=== PATIENT | female | born 1935 | race Caucasian/White ===

== ENCOUNTER → 2018-07-13 09:57 | Outpatient (CLI) | payer MEDICARE, SELFPAY ==
--- NOTE | 2018-07-13 | DI.MG.S_ITS ---
BILATERAL DIGITAL SCREENING MAMMOGRAM 3D/2D WITH CAD: 07/13/2018 CLINICAL: Routine screening. Comparison is made to exams dated: 07/05/2017 mammogram, 07/03/2016 mammogram, and 07/02/2015 mammogram - [facility]. There are scattered fibroglandular elements in both breasts. Current study was also evaluated with a Computer Aided Detection (CAD) system. No significant masses, calcifications, or other findings are seen in either breast. There has been no significant interval change. IMPRESSION: NEGATIVE There is no mammographic evidence of malignancy. A 1 year screening mammogram is recommended.(07/14/2019) This exam was interpreted at Station ID: [id number]. NOTE: For mammograms, a report in lay terms will be sent to the patient. Approximately 15% of breast malignancies will not be visualized mammographically. In the management of a palpable breast mass, a negative mammogram must not discourage biopsy of a clinically suspicious lesion. Electronically Signed By: Toni smith/arlene:07/13/2018 10:59:21 letter sent: Normal Exam ACR BI-RADS Category 1: Negative 3341F
== END ==
PROVIDERS: PCP Internal Medicine; Visit Provider Internal Medicine
DX: Z12.31 Encounter for screening mammogram for malignant neoplasm of breast (principal)
CPT/HCPCS: 77063; 77067

== ENCOUNTER → 2018-11-14 08:49 | Outpatient (CLI) | payer MEDICARE, SELFPAY ==
[2018-11-14 09:52] LABS: Alanine Aminotransferase 21 IU/L (9-52); Albumin 4.4 g/dL (3.5-5.0); Albumin Globulin Ratio 1.8 (1.0-2.8); Alkaline Phosphatase 69 U/L (38-126); Aspartate Aminotransferase 19 IU/L (14-36); BUN Creatinine Ratio 21.3 (6-22); Bilirubin Total 0.6 mg/dL (0.2-1.3); Blood Urea Nitrogen 17 mg/dL (7-17); Calcium 9.7 mg/dL (8.4-10.2); Carbon Dioxide 31 mmol/L (22-32); Chloride 103 mmol/L (98-107); Estimated Glomerular Filt Rate > 60.0 mL/min (>60); Globulin 2.5 g/dL (1.7-4.1); Glucose 92 mg/dL (80-110); HEMOLYSIS < 15 (0-50); Potassium 4.3 mmol/L (3.4-5.1); Sodium 142 mmol/L (137-145); Total Protein 6.9 g/dL (6.3-8.2)
== END ==
PROVIDERS: PCP Internal Medicine; Visit Provider Internal Medicine
DX: E78.2 Mixed hyperlipidemia (principal); I10 Essential (primary) hypertension
CPT/HCPCS: 36415; 80053

== ENCOUNTER → 2018-12-22 10:05 | Outpatient (CLI) | payer MEDICARE, SELFPAY ==
[2018-12-22 11:06] LABS: Alanine Aminotransferase 22 IU/L (9-52); Albumin 4.4 g/dL (3.5-5.0); Albumin Globulin Ratio 1.7 (1.0-2.8); Alkaline Phosphatase 76 U/L (38-126); Aspartate Aminotransferase 19 IU/L (14-36); BUN Creatinine Ratio 17.8 (6-22); Bilirubin Total 0.7 mg/dL (0.2-1.3); Blood Urea Nitrogen 16 mg/dL (7-17); Carbon Dioxide 32 mmol/L (22-32); Chloride 100 mmol/L (98-107); Estimated Glomerular Filt Rate 59.7 mL/min (>60); Globulin 2.6 g/dL (1.7-4.1); Glucose 108 mg/dL (80-110); HEMOLYSIS < 15 (0-50); Potassium 4.9 mmol/L (3.4-5.1); Sodium 142 mmol/L (137-145)
== END ==
PROVIDERS: PCP Internal Medicine; Visit Provider Internal Medicine
DX: I10 Essential (primary) hypertension (principal); R42 Dizziness and giddiness
CPT/HCPCS: 36415; 80053

== ENCOUNTER 2019-04-11 08:50 | Day surgery (SDC) | payer MEDICARE, SELFPAY ==
[2019-04-11] VITALS (8 sets, daily range): BP systolic 139–154; BP diastolic 65–76; PULSE 51–63; RESP 12–16; TEMP 36.5–37.3; O2SAT 95–97; BMI 27.0
--- NOTE | 2019-04-11 | PATH_ITS ---
[facility] Accession Number: [id number] . 01 Material submitted: . PART A: cecum - CECAL POLYP PART B: colon - POLYP AT 30 CM . 01 Clinical history: . SCREENING COLONOSCOPY . 02 Diagnosis: A. Cecum, Polyp: Tubular adenoma. . B. Colon At 30 CM, Polyp: Hyperplastic polyp. BFI/04/12/2019 . 02 Electronically signed: . Hank Kumar MD, PhD, Pathologist NPI- [id number] . 01 Gross description: . Part A: CECAL POLYP: Received in formalin are 2 fragment(s) of villanueva, soft tissue measuring 0.1 x 0.1 x 0.1 cm to 0.2 x 0.2 x 0.2 cm which is entirely submitted and submitted entirely in 1 cassette(s) Part B: POLYP AT 30 CM: Received in formalin is 1 fragment(s) of villanueva, soft tissue measuring 0.1 x 0.1 x 0.1 cm which is entirely submitted and submitted entirely in 1 cassette(s) /DMC /DMC . 02 Pathologist provided ICD-10: D12.0, K63.5 . 02 CPT . 884413, [id number] Performed at: 01 [facility] [address], [place], [place] [id number] MD Toni Dolan MD Phone: [phone] Performed at: 02 [facility] [address] [place], [place] [id number] MD Lina Collazo MD Phone: [phone]
[2019-04-11] MEDS: SODIUM CHLORIDE 0.9% 1,000 ML 84 ML IV (09:28)
--- NOTE | 2019-04-11 09:47 | PM.HP.1 ---
History of Present Illness Date Patient Seen: 04/11/19 Time Patient Seen: 09:47 Chief complaint: [id number] SCREENING COLONOSCOPY Narrative: The patient is a woman with a history of polyps. Her last exam was 7 years ago. She is here for a screening colonoscopy. Patient History Medical History H/O adenomatous polyp of colon (Inactive) Essential hypertension (Chronic 11/05/15) Mixed hyperlipidemia (Chronic 11/05/15) Surgical History History of lumpectomy (Resolved 1949) History of pelvic surgery (Resolved 2008) Status post cholecystectomy (Resolved 1994) Status post hysterectomy (Resolved 1984) Status post tonsillectomy and adenoidectomy (Resolved 1939) Family History Father Family history of hypertension Grandmother Family history of diabetes mellitus Mother Family history of interstitial nephritis Social History household members: spouse Smoking Status: Never smoker Family & Social History Family History Father Family history of hypertension Grandmother Family history of diabetes mellitus Mother Family history of interstitial nephritis Social History: household members spouse Tobacco & Substance use: Smoking Status Never smoker Meds Home Medications Medication Instructions Recorded Confirmed Type lovastatin 40 mg tablet 40 mg PO HS #90 tab 11/29/18 04/11/19 Rx hydrochlorothiazide 25 mg PO QDAY #90 tab 03/06/19 04/11/19 Rx Allergies Allergy/AdvReac Type Severity Reaction Status Date / Time No Known Drug Allergies Allergy Verified 04/11/19 09:20 Review of Systems Review of Systems All systems reviewed & are unremarkable except as noted in HPI and below Cardiovascular Comments: History of hypertension on medication Exam Vital Signs (past 8 hours): - 04/11/19 09:15 Temperature 97.9 F Pulse Rate 58 L Respiratory Rate 15 Blood Pressure 151/76 H Pulse Oximetry 96 Oxygen Delivery Method Room Air Narrative Exam Narrative: Pleasant cooperative patient no apparent distress. Lungs are clear to auscultation. No rales or rhonchi. Heart regular rate and rhythm no murmur gallop. Abdomen is soft nontender without mass. No obvious hernias. Patient is alert and oriented x3. Assessment & Plan Assessment & Plan narrative: The patient for a screening colonoscopy. I have discussed the procedure with them. Risks of bleeding, perforation which would necessitate major operation, failure to find remove all lesions, the potential tattoo were all discussed. All questions were answered. They wished to proceed.
--- NOTE | 2019-04-11 09:49 | PM.PREOP ---
Pre-operative Note Interval Note History & Physical reviewed/Exam performed by Physician: Yes Changes to H&P: No ASA Class (for procedural sedation): II
[2019-04-11] MEDS: MIDAZOLAM 5 MG/5 ML VIAL IV (10:15)
[2019-04-11] MEDS: fentaNYL 250 MCG/5 ML INJ IV (10:16)
--- NOTE | 2019-04-11 10:21 | SUR.OPER ---
ERBE CAUTERY MACHINE USED.
--- NOTE | 2019-04-11 10:41 | PM.OP.ENDO ---
Operative Date/Time/Diagnoses Date of procedure: 04/11/19 Time of procedure: 10:41 Post-op diagnosis: same Procedure & Clinicians Study performed: Colonoscopy with hot biopsy Same procedure as scheduled: Yes Indications: Screening. Personal history of polyps. Surgeon: Zach Dwyer Procedure Notes SCOAP/Timeout: Performed Procedure in detail: The patient was placed in the left lateral decubitus position and underwent IV sedation directed by the surgeon consisting of fentanyl and Versed. Digital exam was unremarkable. The scope was inserted and advanced through the rectum into the sigmoid, descending, transverse, and ascending colon. Patient was noted to have extensive sigmoid diverticulosis and occasional diverticula elsewhere. The cecum was reached identified by the ileocecal valve . There was a small polyp in the cecum which was removed with the hot biopsy forceps. The scope was gradually brought out. One Polyps were found at 30 cm. This too was removed with hot biopsy forceps.. The scope ultimately was retroflexed in the rectum. The appearance was normal. The scope was removed and the patient tolerated the procedure well. Prep was excellent Scope withdrawal time: 12 min(10 on exam only) Sedation minutes: 40 Findings: diverticulosis (Principally sigmoid but scattered elsewhere) and polyp (Two small) Specimen(s): other (Polyps) Complications: none Recommendations: Other recommendation (Due to age in 5 years I would probably not recommend a repeat colonoscopy) Follow up: as needed Disposition: PACU
--- NOTE | 2019-04-11 11:09 | SUR.PHASEI ---
1105 very drowsy, arouses easily, HOB elevated, juice given and tolerated well. Denies discomfort/nausea, or passing flatus. Preparing to transfer. VSS.
== END 2019-04-11 11:52 | disposition home or self-care (01) ==
PROVIDERS: PCP Internal Medicine; Visit Provider Specialist
PROC: 0DJD8ZZ Inspection of Lower Intestinal Tract, Via Natural or Artificial Opening Endoscopic (ICD-10-PCS; CPT 45378; principal; 2019-04-11 09:45)
DX: Z86.010 Personal history of colon polyps (principal); K57.30 Diverticulosis of large intestine without perforation or abscess without bleeding; I10 Essential (primary) hypertension; E78.5 Hyperlipidemia, unspecified; D12.0 Benign neoplasm of cecum; K63.5 Polyp of colon
CPT/HCPCS: 45384; 88305; 99152; 99153; J2250; J3010

== ENCOUNTER → 2019-07-19 10:04 | Outpatient (CLI) | payer MEDICARE, SELFPAY ==
--- NOTE | 2019-07-19 | DI.MG.S_ITS ---
BILATERAL DIGITAL SCREENING MAMMOGRAM 3D/2D WITH CAD: 07/19/2019 CLINICAL: Routine screening. Comparison is made to exams dated: 07/13/2018 mammogram, 07/05/2017 mammogram, and 07/03/2016 mammogram - [facility]. There are scattered fibroglandular elements in both breasts. Current study was also evaluated with a Computer Aided Detection (CAD) system. There is a mole marker on the right breast. There are mole markers on the left breast. A linear scar marker overlies the outer right breast. No suspicious masses, calcifications, or other findings are seen in either breast. There has been no significant interval change. IMPRESSION: NEGATIVE There is no mammographic evidence of malignancy. A 1 year screening mammogram is recommended. This exam was interpreted at Station ID: [id number]. NOTE: For mammograms, a report in lay terms will be sent to the patient. Approximately 15% of breast malignancies will not be visualized mammographically. In the management of a palpable breast mass, a negative mammogram must not discourage biopsy of a clinically suspicious lesion. Electronically Signed By: James Anderson M.D. ecl/:07/19/2019 11:47:04 letter sent: Normal Exam ACR BI-RADS Category 1: Negative 3341F
== END ==
PROVIDERS: PCP Internal Medicine; Visit Provider Internal Medicine
DX: Z12.31 Encounter for screening mammogram for malignant neoplasm of breast (principal)
CPT/HCPCS: 77063; 77067

== ENCOUNTER → 2019-08-07 08:05 | Outpatient (CLI) | payer MEDICARE, SELFPAY ==
[2019-08-07 09:12] LABS: BUN Creatinine Ratio 25.7 (6-22); Blood Urea Nitrogen 18 mg/dL (7-17); Calcium 9.8 mg/dL (8.4-10.2); Carbon Dioxide 30 mmol/L (22-32); Chloride 101 mmol/L (98-107); Estimated Glomerular Filt Rate > 60.0 mL/min (>60); Glucose 97 mg/dL (80-110); HEMOLYSIS < 15 (0-50); Potassium 4.5 mmol/L (3.4-5.1); Sodium 141 mmol/L (137-145)
== END ==
PROVIDERS: PCP Internal Medicine; Visit Provider Internal Medicine
DX: E78.2 Mixed hyperlipidemia (principal); I10 Essential (primary) hypertension
CPT/HCPCS: 36415; 80048

== ENCOUNTER 2019-08-15 08:04 | Emergency (ER) | payer MEDICARE, SELFPAY ==
[2019-08-15 08:22] VITALS: BP 197/59; PULSE 46; RESP 15; TEMP 36.3; O2SAT 98
--- NOTE | 2019-08-15 08:23 | ED.GENADULT ---
HPI - General Adult General Chief complaint: Dizziness Stated complaint: dizzy,nausea Time Seen by Provider: 08/15/19 08:20 Source: patient Mode of arrival: Ambulatory Limitations: no limitations History of Present Illness HPI narrative: 83-year-old female here for evaluation of lightheadedness. She states that has been going on for the past couple days. Seems to have no other associated symptoms except for some nausea. She states that the nausea ?is not bad ?she has not needed to take any medications for it. Is still tolerating oral intake. She states that for the past several years she has had episodes like this once or twice a year. States she has seen her primary doctor about it. Has not seen a neurologist. She states that she feels like her primary doctor does not know specifically what is going on. She does not take any medications for it. States that normally starts in last several days but then gradually resolves on its own. She states the last time this happened her primary doctor told her that if it ever happened again she should be evaluated when she was having the symptoms. That is why she came in this morning. Related Data Home Medications Medication Instructions Recorded Confirmed clobetasol 0.05 % topical ointment 1 applictn TOP .q4days gram 05/16/19 08/08/19 estradiol 1 gram VAG QWEEK 05/16/19 08/08/19 Previous Rx's Medication Instructions Recorded lovastatin 40 mg tablet 40 mg PO HS #90 tab 11/29/18 hydrochlorothiazide 25 mg PO QDAY #90 tab 03/06/19 meclizine 25 mg PO TID PRN #14 tab 08/15/19 Allergies Allergy/AdvReac Type Severity Reaction Status Date / Time No Known Drug Allergies Allergy Verified 08/08/19 15:08 Review of Systems Constitutional Constitutional: Denies fever(s) and Denies headache(s) Eyes Eyes: Denies change in vision and Denies diplopia ENT Ears, Nose, Mouth, and Throat: Denies vertigo, Reports dizziness, Denies ear discharge, Denies otalgia, Denies facial pain, Denies headache(s), Denies mouth pain, Denies nasal discharge, Denies neck pain, Denies post nasal drip, Denies tinnitus, Denies sinus pressure and Denies sore throat Cardiovascular Cardiovascular: Denies chest pain and Denies dyspnea Respiratory Respiratory: Denies cough and Denies dyspnea Gastrointestinal Gastrointestinal: Denies abdominal pain, Reports nausea and Denies vomiting Genitourinary Genitourinary: Denies dysuria Musculoskeletal Musculoskeletal: Denies myalgias, Denies arthralgias and Denies neck pain Integumentary/Breasts Skin/Breast: Denies lesions and Denies rash Neurologic Neurologic: Denies behavioral changes, Denies vertigo, Reports dizziness and Denies headache(s) Psychiatric Psychiatric: Denies behavioral changes Hematologic/Lymphatic Hematologic/Lymphatic: Denies easy bleeding and Denies easy bruising Patient History Medical History Essential hypertension (Chronic 11/05/15) H/O adenomatous polyp of colon (Inactive) Mixed hyperlipidemia (Chronic 11/05/15) Social History household members: spouse Smoking Status: Never smoker Exam Initial Vital Signs Initial Vital Signs: Vital Signs Temperature 97.3 F L 08/15/19 08:22 Pulse Rate 46 L 08/15/19 08:22 Respiratory Rate 15 08/15/19 08:22 Blood Pressure 197/59 H 08/15/19 08:22 Pulse Oximetry 98 08/15/19 08:22 Const General: cooperative, comfortable, well developed and well groomed Orientation: alert, awake and oriented x3 HENMT Head: normal to inspection and normocephalic Resp Effort & Inspection: normal respiratory effort Auscultation: clear to auscultation bilaterally Cardio Rate: bradycardic Pulses: radial pulses present Skin Lesions: no lesions Rashes: no rashes Neuro General: alert, awake and oriented x3 Cranial Nerves: CN's II-XI intact bilaterally Cognition: normal cognition Speech: speech normal Gait: normal gait Motor: muscle tone normal throughout Sensory Exam: no sensory deficits noted Extrem General: normal to inspection and capillary refill normal Psych Appearance: grossly normal and well kempt Scores GCS [place] coma scale eye opening: Spontaneous [place] coma scale verbal response: Orientated [place] coma scale motor response: Obey commands [place] coma scale total score: 15 Course Orders Ordered: ED Orders 08/15/19 08:22 EKG-12 Lead Stat 08/15/19 08:45 Basic Metabolic Panel Stat Complete Blood Count AUTO DIFF Stat Thyroid Stimulating Hormone Stat Discontinued Medications Meclizine HCl (Antivert) 25 mg PO NOW ONE Stop: 08/15/19 08:32 Last Admin: 08/15/19 08:59 Dose: 25 mg Documented by: LEONARD Vital Signs Vital signs: Vital Signs - 8 hr 08/15/19 08:22 08/15/19 10:30 Temperature 97.3 F L Pulse Rate 46 L 58 L Respiratory Rate 15 18 Blood Pressure 197/59 H Blood Pressure [Left Arm] 160/60 H Pulse Oximetry 98 99 Medical Decision Making Lab Data Lab results reviewed: Yes I reviewed the patient's lab results. Result diagrams: 08/15/19 08:45 08/15/19 08:45 Labs: Lab Results 08/15/19 08/15/19 08/15/19 Range/Units 08:45 08:45 08:45 WBC 5.2 (4.5-11.0) X10^3/uL RBC 4.61 (4.0-5.2) X10^6/uL Hgb 14.0 (12.0-16.0) g/dL Hct 40.6 (36-46) % MCV 88.1 (80-100) fL MCH 30.5 (26-34) PG MCHC 34.6 (30-36) % RDW 14.5 (11.6-14.8) % Plt Count 164 (150-400) X10^3/uL Neut % (Auto) 71.8 (50-75) % Lymph % (Auto) 19.3 L (25-40) % [place] % (Auto) 6.6 (3-14) % Eos % (Auto) 1.8 L (2-4) % Baso % (Auto) 0.5 (0-2) % Neut # (Auto) 3700 (0607-6562) /uL Lymph # (Auto) 1000 L (1610-7157) /uL [place] # (Auto) 300 (0-900) /uL Eos # (Auto) 100 (0-450) /uL Baso # (Auto) 0 (0-100) /uL Sodium 141 (137-145) mmol/L Potassium 3.8 (3.4-5.1) mmol/L Chloride 103 (98-107) mmol/L Carbon Dioxide 29 (22-32) mmol/L BUN 13 (7-17) mg/dL Creatinine 0.60 (0.52-1.04) mg/dL Estimated GFR > 60.0 (>60) mL/min BUN/Creatinine Ratio 21.7 (6-22) Glucose 104 (80-110) mg/dL Calcium 9.5 (8.4-10.2) mg/dL TSH 3.15 (0.47-4.68) uIU/mL ECG Data Attestation: I personally reviewed and interpreted this ECG as follows: Prior ECG tracings: not available for review Interpretation: Sinus bradycardia Left axis deviation LVH Ventricular rate of 46 Normal QRS QTC [address] T wave changes MDM Narrative Medical decision making narrative: Patient reports improvement of her symptoms after the meclizine. She was able to ambulate around the emergency department. Her labs are unremarkable. She is bradycardic on her EKG. There is no prior EKGs to refer this to. I do not feel that this is the cause of her symptoms. Her blood pressure improved. Will send home with prescription for meclizine. She was instructed to contact her primary provider about the indications for a Holter monitor versus is evaluation by Ear Nose and Throat. She was given return precautions. She expressed understanding and agreement with plan. Discharge Plan Departure Patient Disposition: Home Clinical Impression: Dizziness Instructions: DI for Dizziness-Nonvertigo Activity Restrictions/Additional Instructions: Continue all of your medications as directed. I do recommend you talk with your primary provider about the indications for a Holter monitor versus referral to see ear nose and throat. Return to the emergency department for any of the symptoms that we discussed. Prescriptions: New meclizine 25 mg tablet 25 mg PO TID PRN (Reason: dizziness) Qty: 14 RF: 0 No Action lovastatin 40 mg tablet 40 mg PO HS Qty: 90 RF: 3 hydrochlorothiazide 25 mg tablet 25 mg PO QDAY Qty: 90 RF: 1 clobetasol 0.05 % ointment 1 applictn TOP .q4days RF: 0 estradiol [Estrace] 0.01 % (0.1 mg/gram) cream 1 gram VAG QWEEK RF: 0 Referrals: Rocco Villeda MD [Primary Care Provider] -
[2019-08-15 08:54] LABS: Add Manual Diff / Slide Review NO; Basophils Absolute Auto 0 /uL (0-100); Basophils Percent Auto 0.5 % (0-2); Eosinophils Absolute Auto 100 /uL (0-450); Eosinophils Percent Auto 1.8 % (2-4); Hematocrit 40.6 % (36-46); Lymphocytes Absolute Auto 1000 /uL (1100-4500); Lymphocytes Percent Auto 19.3 % (25-40); Mean Corpuscular HGB Conc 34.6 % (30-36); Mean Corpuscular Hemoglobin 30.5 PG (26-34); Mean Corpuscular Volume 88.1 fL (80-100); Monocytes Absolute Auto 300 /uL (0-900); Monocytes Percent Auto 6.6 % (3-14); Neutrophils Absolute Auto 3700 /uL (1500-7000); Neutrophils Percent Auto 71.8 % (50-75); Platelet Count 164 X10^3/uL (150-400); Red Blood Cell Count 4.61 X10^6/uL (4.0-5.2); Red Cell Distribution Width 14.5 % (11.6-14.8); White Blood Cell Count 5.2 X10^3/uL (4.5-11.0)
[2019-08-15] MEDS: MECLIZINE HCL 12.5 MG TABLET 25 MG PO (08:59)
[2019-08-15 09:11] LABS: BUN Creatinine Ratio 21.7 (6-22); Blood Urea Nitrogen 13 mg/dL (7-17); Calcium 9.5 mg/dL (8.4-10.2); Carbon Dioxide 29 mmol/L (22-32); Chloride 103 mmol/L (98-107); Estimated Glomerular Filt Rate > 60.0 mL/min (>60); Glucose 104 mg/dL (80-110); HEMOLYSIS < 15 (0-50); Potassium 3.8 mmol/L (3.4-5.1); Sodium 141 mmol/L (137-145)
[2019-08-15 09:42] LABS: Thyroid Stimulating Hormone 3.15 uIU/mL (0.47-4.68)
--- NOTE | 2019-08-15 10:16 | PC.NURSE ---
pt ambulated unassisted around nursing station, states that she feels much better than when I came in
[2019-08-15 10:30] VITALS: BP 160/60; PULSE 58; RESP 18; O2SAT 99
[2019-08-15 10:53] VITALS: BP 162/75; PULSE 55; O2SAT 99
== END 2019-08-15 10:54 | disposition home or self-care (01) ==
PROVIDERS: Emergency Provider Emergency Medicine; PCP Internal Medicine
DX: R42 Dizziness and giddiness (principal)
CPT/HCPCS: 36415; 80048; 84443; 85025; 93005; 99282; 99284

== ENCOUNTER → 2019-08-30 07:24 | Outpatient (CLI) | payer MEDICARE, SELFPAY ==
--- NOTE | 2019-09-22 08:24 | PM.CARDMON.1 ---
[employer] Report Referral & Results Date Patient Seen: 08/30/19 Requesting provider: Rocco Villeda Indication: Bradycardia Duration of monitoring (days): 14 Diary information: There were 2 patient diary entries and 2 patient triggered events These entries were associated with sinus rhythm and PACs Data: Minimum heart rate identified was 37 beats per minute at 08:30 on 09/06/2019 Maximum sinus heart rate was 121 beats per minute at 17:00 on 09/08/2019 Maximum overall heart rate was 179 beats per minute at 12:20 on 09/03/2019 during a 5 beat run of SVT Less than 1% of identified beats rather ventricular supraventricular ectopic in origin The computer identified 117 runs of SVT/atrial tachycardia with the longest being 54 minutes with a rate of 92 which suggests a non SVT. The fastest rate was as above 107 9 beats per minute during a 5 beat run Impression: Probably normal cardiac care nurse. Does not appear to be any significant supraventricular tachycardia and certainly no significant bradycardia
== END ==
LOC: CAR 07:25 → HOLT 07:27
PROVIDERS: PCP Internal Medicine; Visit Provider Internal Medicine
DX: R00.1 Bradycardia, unspecified (principal)
CPT/HCPCS: 0296T; 0298T

== ENCOUNTER → 2019-09-15 10:21 | Outpatient (CLI) | payer MEDICARE, SELFPAY ==
--- NOTE | 2019-09-15 10:25 | DI.RAD.S_ITS ---
PROCEDURE: XR HAND RT MIN 3V INDICATIONS: finger pain/glf TECHNIQUE: 3 views of the hand(s) acquired. COMPARISON: None. FINDINGS: Bones: Oblique fracture of the fifth metacarpal. Fracture of the proximal phalanx of the little finger. There is mild radial displacement of the distal fragment. Diffuse carpal degeneration. Diffuse interphalangeal degenerative joint disease. Soft tissues: No suspicious soft tissue calcifications. IMPRESSION: Oblique fracture of the fifth metacarpal Minimally displaced fracture at the base of the little finger proximal phalanx Dictated by: Speedy Esposito M.D. on 09/15/2019 at 14:16 Approved by: Speedy Esposito M.D. on 09/15/2019 at 14:21
[2019-09-15 11:39] LABS: BUN Creatinine Ratio 27.1 (6-22); Blood Urea Nitrogen 19 mg/dL (7-17); Carbon Dioxide 30 mmol/L (22-32); Chloride 100 mmol/L (98-107); Creatine Kinase 70 U/L (30-135); Estimated Glomerular Filt Rate > 60.0 mL/min (>60); Glucose 84 mg/dL (80-110); HEMOLYSIS < 15 (0-50); Magnesium 2.1 mg/dL (1.6-2.3); Potassium 3.7 mmol/L (3.4-5.1); Sodium 138 mmol/L (137-145)
== END ==
PROVIDERS: PCP Internal Medicine; Visit Provider Internal Medicine
DX: M79.646 Pain in unspecified finger(s) (principal); W18.30XA Fall on same level, unspecified, initial encounter; E78.2 Mixed hyperlipidemia; I10 Essential (primary) hypertension
CPT/HCPCS: 73130; 80048; 82550; 83735

== ENCOUNTER → 2020-03-01 09:46 | Outpatient (CLI) | payer MEDICARE, SELFPAY ==
--- NOTE | 2020-03-01 09:49 | DI.RAD.S_ITS ---
PROCEDURE: XR CHEST 2V INDICATIONS: cough TECHNIQUE: 2 views of the chest were acquired. COMPARISON: None. FINDINGS: Surgical changes and devices: None. Lungs and pleura: Lungs are clear. No pleural effusions or pneumothorax. Mediastinum: Mediastinal contours are normal. Heart size is normal. Bones and chest wall: No suspicious bony abnormalities. Soft tissues appear unremarkable. IMPRESSION: Normal for age, source of current cough symptoms is not seen. Dictated by: Jose Mendez M.D. on 03/01/2020 at 11:25 Approved by: Jose Mendez M.D. on 03/01/2020 at 11:25
== END ==
PROVIDERS: PCP Internal Medicine; Referring Provider Internal Medicine; Visit Provider Internal Medicine
DX: R05 Cough (principal)
CPT/HCPCS: 71046

== ENCOUNTER → 2020-03-22 10:40 | Outpatient (CLI) | payer MEDICARE, SELFPAY ==
--- NOTE | 2020-03-22 10:42 | DI.RAD.S_ITS ---
PROCEDURE: FL BARIUM SWALLOW INDICATIONS: cough/aspiration COMPARISON: None. FINDINGS: Function: There is severely decreased esophageal peristalsis. Delayed esophageal clearance No elicited gastroesophageal reflux. There is normal transit of a calibrated barium tablet through the esophagus into the stomach. Morphology: Air-contrast images demonstrate normal mucosal morphology. Single contrast views show no esophageal strictures, extrinsic mass effects, or diverticula. Limited images of the stomach demonstrate normal appearance. IMPRESSION: Severe esophageal dysmotility Dictated by: Speedy Esposito M.D. on 03/22/2020 at 12:37 Approved by: Speedy Esposito M.D. on 03/22/2020 at 12:39
== END ==
PROVIDERS: PCP Internal Medicine; Referring Provider Internal Medicine; Visit Provider Internal Medicine
DX: K22.4 Dyskinesia of esophagus (principal); T17.908A Unspecified foreign body in respiratory tract, part unspecified causing other injury, initial encounter; R05 Cough; I10 Essential (primary) hypertension
CPT/HCPCS: 74220

== ENCOUNTER → 2020-07-25 10:10 | Outpatient (CLI) | payer MEDICARE, SELFPAY ==
--- NOTE | 2020-07-25 | DI.MG.S_ITS ---
BILATERAL DIGITAL SCREENING MAMMOGRAM 3D/2D WITH CAD: 07/25/2020 CLINICAL: Routine screening. Comparison is made to exams dated: 07/19/2019 mammogram, 07/13/2018 mammogram, and 07/05/2017 mammogram - [facility]. There are scattered fibroglandular elements in both breasts. Current study was also evaluated with a Computer Aided Detection (CAD) system. There is a mole marker on the right breast. There are mole markers on the left breast. No significant masses, calcifications, or other findings are seen in either breast. There has been no significant interval change. IMPRESSION: NEGATIVE There is no mammographic evidence of malignancy. A 1 year screening mammogram is recommended. This exam was interpreted at Station ID: [id number]. NOTE: For mammograms, a report in lay terms will be sent to the patient. Approximately 15% of breast malignancies will not be visualized mammographically. In the management of a palpable breast mass, a negative mammogram must not discourage biopsy of a clinically suspicious lesion. Electronically Signed By: Ti guzman/arelne:07/25/2020 10:51:31 letter sent: Normal Exam ACR BI-RADS Category 1: Negative 3341F
== END ==
PROVIDERS: PCP Internal Medicine; Referring Provider Internal Medicine; Visit Provider Internal Medicine
DX: Z12.31 Encounter for screening mammogram for malignant neoplasm of breast (principal)
CPT/HCPCS: 77063; 77067

== ENCOUNTER → 2020-10-18 08:30 | Outpatient (CLI) | payer MEDICARE, SELFPAY ==
[2020-10-18 10:48] LABS: Alanine Aminotransferase 13 IU/L (<35); Albumin Globulin Ratio 1.5 (1.0-2.8); Alkaline Phosphatase 84 U/L (38-126); Aspartate Aminotransferase 23 IU/L (14-36); BUN Creatinine Ratio 20.3 (6-22); Bilirubin Total 0.6 mg/dL (0.2-1.3); Blood Urea Nitrogen 16 mg/dL (7-17); Calcium 9.4 mg/dL (8.4-10.2); Carbon Dioxide 33 mmol/L (22-32); Chloride 103 mmol/L (98-107); Cholesterol 194 mg/dL (140-199); Estimated Glomerular Filt Rate > 60.0 mL/min (>60); Globulin 2.6 g/dL (1.7-4.1); Glucose 94 mg/dL (80-110); HDL Cholesterol 52 mg/dL (40-60); HEMOLYSIS < 15 (0-50); LDL Cholesterol Calculated 124 mg/dL (<100); Potassium 3.8 mmol/L (3.4-5.1); Sodium 137 mmol/L (137-145); Total Protein 6.6 g/dL (6.3-8.2); Triglycerides 92 mg/dL (35-150)
== END ==
PROVIDERS: PCP Internal Medicine; Referring Provider Internal Medicine; Visit Provider Internal Medicine
DX: E78.2 Mixed hyperlipidemia (principal); I10 Essential (primary) hypertension
CPT/HCPCS: 36415; 80053; 80061

== ENCOUNTER → 2021-04-21 10:56 | Outpatient (CLI) | payer MEDICARE, SELFPAY ==
[2021-04-21 11:39] LABS: BUN Creatinine Ratio 23.2 (6-22); Blood Urea Nitrogen 16 mg/dL (7-17); Calcium 9.8 mg/dL (8.4-10.2); Carbon Dioxide 30 mmol/L (22-32); Chloride 102 mmol/L (98-107); Estimated Glomerular Filt Rate > 60.0 mL/min (>60); Glucose 80 mg/dL (80-110); HEMOLYSIS < 15 (0-50); Potassium 4.5 mmol/L (3.4-5.1); Sodium 137 mmol/L (137-145)
== END ==
PROVIDERS: PCP Internal Medicine; Referring Provider Internal Medicine; Visit Provider Internal Medicine
DX: E78.2 Mixed hyperlipidemia (principal); I10 Essential (primary) hypertension
CPT/HCPCS: 36415; 80048; 83735

== ENCOUNTER 2021-05-16 16:13 | Emergency (ER) | payer MEDICARE, SELFPAY ==
[2021-05-16 16:23] VITALS: BP 178/72; PULSE 56; RESP 14; TEMP 36.6; O2SAT 98; BMI 27.8
[2021-05-16] MEDS: TET,DIPH,PERTUSS(ACELL),VAC/PF 0.5 ML SYRINGE IM (22:25)
[2021-05-16 22:30] VITALS: BP 178/74
--- NOTE | 2021-05-16 22:41 | DI.CT.S_ITS ---
PROCEDURE: CT HEAD/BRAIN WO CON INDICATIONS: fall TECHNIQUE: Noncontrast 4.5 mm thick angled axial sections acquired from the foramen magnum to the vertex, with coronal and sagittal reformats. For radiation dose reduction, the following was used: automated exposure control, adjustment of mA and/or kV according to patient size. COMPARISON: None. FINDINGS: Image quality: Excellent. CSF spaces: Basal cisterns are patent. No extra-axial fluid collections. The ventricles are symmetric in size and shape. Brain: No intracranial bleeds or masses. There is cerebral volume loss for age, with resultant ventricular and sulcal prominence. There are periventricular and deep white matter chronic small vessel ischemic changes. There is intracranial internal carotid artery atherosclerosis. Skull and face: Calvarium and visualized facial bones appear intact, without suspicious lesions. Bilateral intraocular lens replacements noted. Right periorbital soft tissue swelling noted Sinuses: Visualized sinuses and mastoids are clear. IMPRESSION: Moderate atrophy and chronic ischemic change without acute hemorrhage or mass effect Note: Final report is concordant with preliminary interpretation by [employer] Approved by: Randal Roldan M.D. on 05/17/2021 at 6:39
--- NOTE | 2021-05-16 22:51 | DI.CT.S_ITS ---
PROCEDURE: CT CERVICAL SPINE WO CON INDICATIONS: fall TECHNIQUE: Noncontrast 3 mm thick sections acquired from the skull base to the T4 level. Sagittal and coronal reformats were then constructed. For radiation dose reduction, the following was used: automated exposure control, adjustment of mA and/or kV according to patient size. COMPARISON: None. FINDINGS: Image quality: Excellent. Bones: No fractures or dislocations. Visualized superior ribs are intact. Disc space narrowing, hypertrophic facet and uncovertebral joints noted with small anterior osteophytes in the mid cervical spine. Moderate central stenosis present at C4-5, C5-6, C6-7. Straightening of the normal cervical lordosis may be related to muscle spasm or positioning. Soft tissues: Prevertebral soft tissues are normal in thickness. No paravertebral hematomas. No apical pneumothoraces. IMPRESSION: 1. No evidence of fracture or traumatic malalignment. 2. Straightening of the normal cervical lordosis may related to muscle spasm or positioning. 3. 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 on 05/17/2021 at 6:44
--- NOTE | 2021-05-16 22:51 | DI.CT.S_ITS ---
PROCEDURE: CT FACIAL BONES WO CON INDICATIONS: right eye contusion TECHNIQUE: Noncontrast 2.5 mm thick axial images acquired from the mandible through the frontal sinuses, with coronal and sagittal reformatting. For radiation dose reduction, the following was used: automated exposure control, adjustment of mA and/or kV according to patient size. COMPARISON: None. FINDINGS: Image quality: Excellent. Bones and teeth: Orbital galindo are intact. Sinus galindo show no fracture or deformity. Nasal bones and septum are intact. Visualized portions of the mandible demonstrate no fractures or subluxation. Zygomatic arches are intact. Pterygoid plates are intact. Visualized portions of the skull base and auditory canals are intact. Sinuses: Paranasal sinuses are aerated, without fluid levels, mucosal thickening, or mucoceles. Mastoid air cells are aerated. Soft tissues: No edema, masses, or fluid collections. No enlarged lymph nodes. No soft tissue lacerations or debris. Right periorbital soft tissue swelling Bilateral intraocular lens replacements noted. Vascular: Visualized vascular structures appear normal in the absence of contrast. Bony vascular foramina and canals are intact. IMPRESSION: Right periorbital soft tissue swelling without evidence of fracture or ocular injury. Note: Final report is concordant with preliminary interpretation by [facility] Approved by: Randal Roldan M.D. on 05/17/2021 at 6:41
[2021-05-16 23:04] VITALS: PULSE 74; O2SAT 99
[2021-05-16 23:30] VITALS: PULSE 70; O2SAT 95
[2021-05-17] VITALS: PULSE 73; O2SAT 94
--- NOTE | 2021-05-17 00:11 | ED.FALL ---
HPI - Fall General Chief Complaint: Fall Stated Complaint: Fall, Hit Head and Rt Hand Laceration Time Seen by Provider: 05/16/21 22:48 Source: patient Mode of arrival: Ambulatory History of Present Illness HPI Narrative: Patient is an 85-year-old female who tripped and fell in a parking lot. Her witnessed it and felt like she had a brief loss of consciousness of about 3-4 seconds. She now after waiting multiple hours to be seen has significant right periorbital contusion. She is not on any anti-platelet or anticoagulation medications. She has a significant cut to her right hand which is quite contaminated. She says it was that she tripped and fell. She denies any dizziness or lightheadedness prior to falling. She denies any nausea or vomiting since the injury. She has no neck pain. She has been injured right pinky but says it has been injured her a number of years and is not new. The cut is on the ulnar side of the hand. Related Data Home Medications Medication Instructions Recorded Confirmed estradiol (Estrace) 1 gram VAG QWEEK 05/16/19 04/21/21 clobetasol 0.05 % topical ointment 1 applictn TOP 4XW gram 10/27/19 04/21/21 Previous Rx's Medication Instructions Recorded meclizine 25 mg tablet 25 mg PO TID PRN #14 tab 08/15/19 lovastatin 40 mg tablet 40 mg PO HS #90 tab 12/02/20 hydrochlorothiazide 25 mg tablet See Rx Instructions .ROUTE 03/04/21 .COMPLEX #90 tablet lisinopril 40 mg tablet 40 mg PO DAILY #90 tab 03/04/21 omeprazole 40 mg capsule,delayed 40 mg PO DAILY #90 cap 03/26/21 release cephalexin 500 mg capsule 500 mg PO BID 7 Days #14 cap 05/17/21 Allergies Allergy/AdvReac Type Severity Reaction Status Date / Time No Known Drug Allergies Allergy Verified 05/16/21 16:28 Review of Systems Review of Systems Narrative: GENERAL: Denies chills, fatigue, malaise, fever, sweats, travel HEENT: Denies sinus pain, ear pain, sore throat, difficulty swallowing, neck pain RESPIRATORY: Denies dyspnea, cough, wheezing, hemoptysis, sputum. CARDIOVASCULAR: Denies chest pain, palpitations, orthopnea, edema GASTROINTESTINAL: Denies nausea, vomiting, abdominal pain, diarrhea, constipation, melena. : Denies dysuria, frequency, incontinence, hematuria, urinary retention, flank pain. MUSCULOSKELETAL: Denies weakness, joint pain, or bony pain SKIN: Laceration right hand, right periorbital contusion NEUROLOGIC: + LOC Denies weakness, dizziness, headache, numbness, change in speech, confusion PSYCHIATRIC: No concerning psychosocial issues. 12 point review of systems is negative except for those stated above and HPI Patient History Medical History (Updated 05/17/21 @ 00:46 by Christal Lyons DO) Essential hypertension (11/05/15) GERD with esophagitis H/O adenomatous polyp of colon Mixed hyperlipidemia (11/05/15) Surgical History History of lumpectomy (1949) History of pelvic surgery (2008) Status post cholecystectomy (1994) Status post hysterectomy (1984) Status post tonsillectomy and adenoidectomy (1939) Family History Father Family history of hypertension Grandmother Family history of diabetes mellitus Mother Family history of interstitial nephritis Social History household members: spouse Smoking Status: Never smoker Smoking Status: Never smoker alcohol intake frequency: holidays/special occasions only Substance Use Type: does not use Exam Initial Vital Signs Initial Vital Signs: Vital Signs Temperature 97.9 F 05/16/21 16:23 Pulse Rate 56 L 05/16/21 16:23 Respiratory Rate 14 05/16/21 16:23 Blood Pressure 178/72 H 05/16/21 16:23 Pulse Oximetry 98 05/16/21 16:23 GENERAL: Alert 85-year-old female HEENT: Head atraumatic,EOMI, pupils reactive, face symmetric, right periorbital contusion. I am still in able to open the eye for an eye exam. NECK: Supple no vertebral tenderness no step-off CARDIOVASCULAR: Regular rate and rhythm without murmurs, rubs or gallops. RESPIRATORY: Breath sounds equal bilaterally, no wheezes rales or rhonchi. ABDOMEN: Soft, nontender. Normoactive bowel sounds all 4 quadrants. No guarding or rebound. EXTREMITIES: Normal range of motion, no clubbing or edema. Neurovascularly intact. Obvious deformity to little finger on left hand however patient states that is old. No numbness or worsening range of motion. Pelvis stable no elbow or shoulder injury either. NEUROLOGICAL: Alert and oriented x4.Normal gait and speech. Cranial nerves II through XII grossly intact. I[facility] Specialist strength equal bilaterally SKIN: 5 cm laceration right hand ulnar side just below 5th finger Procedures Laceration Repair Laceration 1: Site: hand Side (If applicable): right Size (cm): 5 Description: linear Depth: simple, single layer Local Anesthetic: lidocaine 1% and with bicarb Amount of anesthesia used (mL): 10 Pre-repair: wound explored, irrigated extensively, deep structures intact and extensive debridement Skin layer closed with: nylon Size (cm): 4-0 Number of sutures: 5 Technique: simple, interrupted Course Orders Ordered: ED Orders 05/16/21 22:41 CT head/brain wo con Stat 05/16/21 22:51 CT cervical spine wo con Stat CT facial bones wo con Stat Discontinued Medications Cefazolin Sodium (Cephalexin 250 Mg Prepack) 1 bottle MISC SEEINSTR ONE Stop: 05/17/21 00:48 Last Admin: 05/17/21 01:06 Dose: 1 bottle Documented by: KAHLIL Diphtheria/Tetanus/Acell Pertussis (Tet,Diph,Pertuss(Acell),Vac/Pf 0.5 Ml Syringe) 0.5 ml IM .ONCE ONE Stop: 05/16/21 22:05 Last Admin: 05/16/21 22:25 Dose: 0.5 ml Documented by: KAHLIL Lidocaine/Sodium Bicarbonate (Lido 1%/Sod Bicarb 8.4% (10ml) 10 Ml Syringe) 10 ml INJ NOW ONE Stop: 05/16/21 23:10 Last Admin: 05/17/21 00:18 Dose: 10 ml Documented by: KAHLIL Vital Signs Vital signs: Vital Signs - 8 hr 05/16/21 22:30 05/16/21 23:04 05/16/21 23:30 Pulse Rate 74 70 Blood Pressure 178/74 H Pulse Oximetry 99 95 05/17/21 00:00 Pulse Rate 73 Blood Pressure Pulse Oximetry 94 MDM - Fall Imaging Data CT scan - head: Radiologist's Impression: Preliminary report No CT evidence of acute intracranial abnormality. Cerebral volume loss, intracranial atherosclerotic disease and mild sequela of chronic small-vessel ischemic disease CT - cervical spine: Radiologist's Impression: Preliminary report Negative CT cervical spine for acute process CT facial: Radiologist's Impression: Preliminary report no intraorbital injury or orbital fractures no fracture of facial bones and MDM Narrative Medical decision making narrative: Patient concerning for a brief syncopal episode after a mechanical fall and she now has significant periorbital contusion which has developed well in the emergency department. CTs are fortunately negative she is not on anticoagulation. Hand is scrubbed and debrided as best as possible sutures is are placed loosely and she is started on antibiotics. Discharge Plan Departure Patient Disposition: Home Clinical Impression: Laceration of right hand, Contusion of eye, right Instructions: Contusion, DI for Laceration Repair -- Complex Activity Restrictions/Additional Instructions: *You have been diagnosed with laceration right handed right eye contusion *What to do: Expect to be sore over the next couple of days. Have sutures removed in about 6-7 days. The wound was quite contaminated. For this reason you are being placed on antibiotics. Keep it clean and dry with soap and water. May apply Neosporin her right hand 1-2 times daily. Change bandage regularly. Avoid soaking in water. Monitor closely. Your eye may be more swollen tomorrow *Continue to take medications as directed Keflex 500 mg twice a day for 7 days --> SENT TO [facility] *Follow up with your primary care provider in 2-3 days *Return to ER if you should have increasing redness, pus, fever, pain, confusion or any new, worsening or concerning symptoms Prescriptions: New cephalexin 500 mg capsule 500 mg PO BID 7 Days Qty: 14 RF: 0 No Action lovastatin 40 mg tablet 40 mg PO HS Qty: 90 RF: 3 hydrochlorothiazide 25 mg tablet See Rx Instructions .ROUTE .COMPLEX Qty: 90 RF: 1 lisinopril 40 mg tablet 40 mg PO DAILY Qty: 90 RF: 1 omeprazole 40 mg capsule,delayed release(DR/EC) 40 mg PO DAILY Qty: 90 RF: 3 estradiol [Estrace] 0.01 % (0.1 mg/gram) cream 1 gram VAG QWEEK RF: 0 clobetasol 0.05 % ointment 1 applictn TOP 4XW RF: 0 meclizine 25 mg tablet 25 mg PO TID PRN (Reason: dizziness) Qty: 14 RF: 0 Referrals: Rocco Villeda MD [Primary Care Provider] -
[2021-05-17] MEDS: LIDO 1%/SOD BICARB 8.4% (10ML) 10 ML SYRINGE INJ (00:18)
[2021-05-17] MEDS: cephALEXin 250 MG PREPACK 1 BOTTLE MISC (01:06)
== END 2021-05-17 01:08 | disposition home or self-care (01) ==
PROVIDERS: Emergency Provider Emergency Medicine; PCP Internal Medicine
DX: S61.411A Laceration without foreign body of right hand, initial encounter (principal); S00.11XA Contusion of right eyelid and periocular area, initial encounter; W19.XXXA Unspecified fall, initial encounter; Z23 Encounter for immunization
CPT/HCPCS: 12002; 70450; 70486; 72125; 90471; 99284; 90715

== ENCOUNTER → 2021-07-29 14:20 | Outpatient (CLI) | payer MEDICARE, SELFPAY ==
--- NOTE | 2021-07-29 14:21 | DI.MG.S_ITS ---
BILATERAL DIGITAL SCREENING MAMMOGRAM 3D/2D WITH CAD: 07/29/2021 CLINICAL: Routine screening. Comparison is made to exams dated: 07/25/2020 mammogram, 07/19/2019 mammogram, and 07/13/2018 mammogram - [facility]. There are scattered fibroglandular elements in both breasts. Current study was also evaluated with a Computer Aided Detection (CAD) system. There is a mole marker on the right breast. There are mole markers on the left breast. No significant masses, calcifications, or other findings are seen in either breast. There has been no significant interval change. IMPRESSION: NEGATIVE There is no mammographic evidence of malignancy. A 1 year screening mammogram is recommended. This exam was interpreted at Station ID: [id number]. NOTE: For mammograms, a report in lay terms will be sent to the patient. Approximately 15% of breast malignancies will not be visualized mammographically. In the management of a palpable breast mass, a negative mammogram must not discourage biopsy of a clinically suspicious lesion. Electronically Signed By: Bj Garcia acr/arlene:07/29/2021 14:55:19 letter sent: Normal Exam ACR BI-RADS Category 1: Negative 3341F
== END ==
PROVIDERS: PCP Internal Medicine; Referring Provider Internal Medicine; Visit Provider Internal Medicine
DX: Z12.31 Encounter for screening mammogram for malignant neoplasm of breast (principal)
CPT/HCPCS: 77063; 77067

== ENCOUNTER → 2021-11-14 09:38 | Outpatient (CLI) | payer MEDICARE, SELFPAY | PROVIDERS: PCP Internal Medicine; Visit Provider Urology | DX: N39.41 Urge incontinence (principal); R30.0 Dysuria; R82.81 Pyuria; R31.29 Other microscopic hematuria; Z77.22 Contact with and (suspected) exposure to environmental tobacco smoke (acute) (chronic); Z98.890 Other specified postprocedural states | CPT/HCPCS: 51798; 81002; 87077; 87086; 87186; 99215 ==

== ENCOUNTER → 2021-12-18 08:20 | Outpatient (CLI) | payer MEDICARE, SELFPAY ==
[2021-12-18 09:18] LABS: BUN Creatinine Ratio 25.3 (6-22); Blood Urea Nitrogen 19 mg/dL (7-17); Calcium 9.2 mg/dL (8.4-10.2); Carbon Dioxide 30 mmol/L (22-32); Chloride 103 mmol/L (98-107); Estimated Glomerular Filt Rate > 60.0 mL/min (>60); Glucose 100 mg/dL (80-110); HEMOLYSIS < 15 (0-50); Potassium 3.7 mmol/L (3.4-5.1); Sodium 138 mmol/L (137-145)
== END ==
PROVIDERS: PCP Internal Medicine; Referring Provider Specialist; Visit Provider Specialist
DX: Z01.812 Encounter for preprocedural laboratory examination (principal)
CPT/HCPCS: 36415; 80048

== ENCOUNTER → 2021-12-19 12:09 | Outpatient (CLI) | payer MEDICARE, SELFPAY ==
--- NOTE | 2021-12-19 12:10 | DI.CT.S_ITS ---
PROCEDURE: CT ABDOMEN PELVIS WO/W CON INDICATIONS: Microscopic hematuria TECHNIQUE: Optional 5 mm thick noncontrast images acquired from the diaphragm to the symphysis pubis. After the administration of intravenous contrast, 5 mm thick images acquired from the diaphragm to the symphysis pubis after a 10-minute delay. 2 mm thick coronal and sagittal reformats were then performed of the kidneys and ureters. For radiation dose reduction, the following was used: automated exposure control, adjustment of mA and/or kV according to patient size. COMPARISON: None. FINDINGS: Image quality: Excellent. Lung bases: Lung bases are clear. Heart size is enlarged. Urinary system: Both kidneys are normal in size, without hydronephrosis or nephrolithiasis on pre-contrast images. No perinephric fat stranding. There is normal bilateral renal enhancement. Renal calyces appear normal in morphology when filled with contrast. Opacified portions of both ureters demonstrate normal caliber. Bladder wall thickness is normal. No calcified bladder stones. Other solid organs: Liver is normal in size . Lateral segment left hepatic lobe multi lobular cyst. Gallbladder is surgically absent . Biliary system is non dilated. Pancreas enhances normally. Spleen is normal in size and enhancement. No adrenal nodules. Peritoneum and bowel: Bowel loops demonstrate normal wall thickness and caliber. No free fluid or air. Nodes and vessels: No retroperitoneal or mesenteric adenopathy by size criteria. Aorta and inferior vena cava are normal in size. Abdominal wall: No ventral hernias. Pelvis: No pathologic free pelvic fluid. No inguinal hernias or adenopathy. Bones: No suspicious bony lesions. No vertebral body compression fractures. IMPRESSION: 1. No evidence of renal neoplasm. 2. No evidence of urinary tract calcification, nor obstruction. Dictated by: Lynn Doss M.D. on 12/19/2021 at 16:49 Approved by: Lynn Doss M.D. on 12/19/2021 at 16:50
== END ==
PROVIDERS: PCP Internal Medicine; Referring Provider Specialist; Visit Provider Specialist
DX: R31.29 Other microscopic hematuria (principal); N93.0 Postcoital and contact bleeding; N39.0 Urinary tract infection, site not specified
CPT/HCPCS: 74178

== ENCOUNTER → 2022-04-16 08:24 | Outpatient (CLI) | payer MEDICARE, SELFPAY ==
[2022-04-16 11:01] LABS: Alanine Aminotransferase 13 IU/L (<35); Albumin 4.1 g/dL (3.5-5.0); Albumin Globulin Ratio 1.9 (1.0-2.8); Alkaline Phosphatase 74 U/L (38-126); Aspartate Aminotransferase 24 IU/L (14-36); Bilirubin Total 0.8 mg/dL (0.2-1.3); Blood Urea Nitrogen 12 mg/dL (7-17); Calcium 9.5 mg/dL (8.4-10.2); Carbon Dioxide 29 mmol/L (22-32); Chloride 98 mmol/L (98-107); Cholesterol 175 mg/dL (140-199); Estimated Glomerular Filt Rate > 60 mL/min (>60); Globulin 2.2 g/dL (1.7-4.1); Glucose 85 mg/dL (80-110); HDL Cholesterol 56 mg/dL (40-60); HEMOLYSIS < 15 (0-50); LDL Cholesterol Calculated 101 mg/dL (<100); Potassium 5.1 mmol/L (3.4-5.1); Sodium 134 mmol/L (137-145); Total Protein 6.3 g/dL (6.3-8.2); Triglycerides 89 mg/dL (35-150)
== END ==
PROVIDERS: PCP Internal Medicine; Referring Provider Internal Medicine; Visit Provider Internal Medicine
DX: I10 Essential (primary) hypertension (principal); E78.2 Mixed hyperlipidemia
CPT/HCPCS: 36415; 80053; 80061

== ENCOUNTER → 2022-08-10 11:37 | Outpatient (CLI) | payer MEDICARE, SELFPAY ==
--- NOTE | 2022-08-10 | DI.MG.S_ITS ---
BILATERAL DIGITAL SCREENING MAMMOGRAM 3D/2D WITH CAD: 08/10/2022 CLINICAL: Routine screening. Comparison is made to exams dated: 07/29/2021 mammogram, 07/25/2020 mammogram, 07/19/2019 mammogram, and 07/13/2018 mammogram - [facility]. There are scattered areas of fibroglandular density in both breasts (category b / 25%-50% glandular tissue). Current study was also evaluated with a Computer Aided Detection (CAD) system. There are benign post operative findings in the right breast. There is a mole marker on the right breast. There are mole markers on the left breast. No significant masses, calcifications, or other findings are seen in either breast. There has been no significant interval change. IMPRESSION: BENIGN There is no mammographic evidence of malignancy. A 1 year screening mammogram is recommended. This exam was interpreted at Station ID: [id number]. NOTE: For mammograms, a report in lay terms will be sent to the patient. Approximately 15% of breast malignancies will not be visualized mammographically. In the management of a palpable breast mass, a negative mammogram must not discourage biopsy of a clinically suspicious lesion. Electronically Signed By: Dilan pittman/arlene:08/10/2022 14:46:49 letter sent: Normal Exam ACR BI-RADS Category 2: Benign Finding(s) 3342F
== END ==
PROVIDERS: PCP Internal Medicine; Referring Provider Internal Medicine; Visit Provider Internal Medicine
DX: Z12.31 Encounter for screening mammogram for malignant neoplasm of breast (principal)
CPT/HCPCS: 77063; 77067

== ENCOUNTER → 2022-10-10 07:43 | Outpatient (CLI) | payer MEDICARE, SELFPAY ==
[2022-10-10 09:23] LABS: Alanine Aminotransferase 14 IU/L (<35); Albumin 4.1 g/dL (3.5-5.0); Albumin Globulin Ratio 1.7 (1.0-2.8); Alkaline Phosphatase 88 U/L (38-126); Aspartate Aminotransferase 21 IU/L (14-36); BUN Creatinine Ratio 17.9 (6-22); Bilirubin Total 0.6 mg/dL (0.2-1.3); Blood Urea Nitrogen 14 mg/dL (7-17); Calcium 9.3 mg/dL (8.4-10.2); Carbon Dioxide 30 mmol/L (22-32); Chloride 100 mmol/L (98-107); Estimated Glomerular Filt Rate > 60 mL/min (>60); Globulin 2.4 g/dL (1.7-4.1); Glucose 89 mg/dL (80-110); HEMOLYSIS < 15 (0-50); Potassium 4.1 mmol/L (3.4-5.1); Sodium 139 mmol/L (137-145); Total Protein 6.5 g/dL (6.3-8.2)
== END ==
PROVIDERS: PCP Internal Medicine; Referring Provider Internal Medicine; Visit Provider Internal Medicine
DX: E78.2 Mixed hyperlipidemia (principal); I10 Essential (primary) hypertension
CPT/HCPCS: 36415; 80053

== ENCOUNTER → 2023-01-21 15:45 | Outpatient (CLI) | payer MEDICARE, SELFPAY ==
[2023-01-21 16:31] LABS: Influenza A - CEPHEID Flu A NEGATIVE (NEGATIVE); Influenza B - CEPHEID Flu B NEGATIVE (NEGATIVE); Respiratory Syncytial Virus Negative (Negative)
[2023-01-21 16:53] LABS: COVID-19 CEPHEID 4-PLEX PCR Negative (Negative)
== END ==
PROVIDERS: PCP Internal Medicine; Visit Provider Nurse Practitioner Family
DX: R05.9 Cough, unspecified (principal)
CPT/HCPCS: 0241U

== ENCOUNTER → 2023-04-13 10:29 | Outpatient (CLI) | payer MEDICARE, SELFPAY ==
[2023-04-13 11:46] LABS: Alanine Aminotransferase 16 IU/L (<35); Albumin 4.5 g/dL (3.5-5.0); Albumin Globulin Ratio 1.9 (1.0-2.8); Alkaline Phosphatase 77 U/L (38-126); Aspartate Aminotransferase 22 IU/L (14-36); BUN Creatinine Ratio 28.4 (6-22); Bilirubin Total 0.5 mg/dL (0.2-1.3); Blood Urea Nitrogen 23 mg/dL (7-17); Calcium 9.8 mg/dL (8.4-10.2); Carbon Dioxide 31 mmol/L (22-32); Chloride 100 mmol/L (98-107); Estimated Glomerular Filt Rate > 60 mL/min (>60); Globulin 2.4 g/dL (1.7-4.1); Glucose 83 mg/dL (80-110); HEMOLYSIS < 15 (0-50); Potassium 4.9 mmol/L (3.4-5.1); Sodium 139 mmol/L (137-145); Total Protein 6.9 g/dL (6.3-8.2)
== END ==
PROVIDERS: PCP Internal Medicine; Referring Provider Internal Medicine; Visit Provider Internal Medicine
DX: I10 Essential (primary) hypertension (principal); E78.2 Mixed hyperlipidemia
CPT/HCPCS: 36415; 80053

== ENCOUNTER → 2023-08-12 09:54 | Outpatient (CLI) | payer MEDICARE, SELFPAY ==
--- NOTE | 2023-08-12 | DI.MG.S_ITS ---
BILATERAL DIGITAL SCREENING MAMMOGRAM 3D/2D WITH CAD: 08/12/2023 CLINICAL: Routine screening. Comparison is made to exams dated: 08/10/2022 mammogram, 07/29/2021 mammogram, and 07/25/2020 mammogram - [facility]. There are scattered areas of fibroglandular density in both breasts (category b / 25%-50% glandular tissue). Current study was also evaluated with a Computer Aided Detection (CAD) system. There are benign post operative findings in the right breast. There is a mole marker on the right breast. There are mole markers on the left breast. No significant masses, calcifications, or other findings are seen in either breast. There has been no significant interval change. IMPRESSION: BENIGN There is no mammographic evidence of malignancy. A 1 year screening mammogram is recommended. This exam was interpreted at Station ID: [id number]. NOTE: For mammograms, a report in lay terms will be sent to the patient. Approximately 15% of breast malignancies will not be visualized mammographically. In the management of a palpable breast mass, a negative mammogram must not discourage biopsy of a clinically suspicious lesion. Electronically Signed By: Rafael ladd/arlene:08/13/2023 08:17:35 letter sent: Normal Exam ACR BI-RADS Category 2: Benign Finding(s) 3342F
== END ==
PROVIDERS: PCP Internal Medicine; Referring Provider Internal Medicine; Visit Provider Internal Medicine
DX: Z12.31 Encounter for screening mammogram for malignant neoplasm of breast (principal)
CPT/HCPCS: 77063; 77067

== ENCOUNTER 2023-08-14 11:07 | Emergency (ER) | payer MEDICARE, SELFPAY ==
[2023-08-14 11:15] VITALS: BP 130/60; PULSE 53; RESP 18; TEMP 36.7; O2SAT 98; BMI 25.7
--- NOTE | 2023-08-14 11:24 | PC.NURSE ---
Addendum entered by Rita Rob R.N. 08/14/23 11:24: EKG Original Note: Rt at bedside for EGK
--- NOTE | 2023-08-14 11:30 | DI.RAD.S_ITS ---
PROCEDURE: XR CHEST 1V INDICATIONS: chest pain TECHNIQUE: One view of the chest was acquired. COMPARISON: [facility], CR, XR CHEST 2V, 03/01/2020, 9:53. FINDINGS: Surgical changes and devices: None. Lungs and pleura: Lungs are clear. No pleural effusions or pneumothorax. Atherosclerotic vascular calcification noted in the aortic arch. Mediastinum: Mediastinal contours appear normal. Heart size is normal. Bones and chest wall: No suspicious bony lesions. Overlying soft tissues appear unremarkable. IMPRESSION: No acute cardiopulmonary findings Approved by: Randal Roldan M.D. on 08/14/2023 at 11:34
[2023-08-14 11:37] VITALS: BP 140/64; PULSE 53; RESP 22; O2SAT 96
[2023-08-14 11:48] LABS: Add Manual Diff / Slide Review NO; Basophils Absolute Auto 0 /uL (0-100); Basophils Percent Auto 0.7 % (0-2); Eosinophils Absolute Auto 100 /uL (0-450); Eosinophils Percent Auto 1.1 % (2-4); Hematocrit 39.8 % (36-46); Hemoglobin 13.6 g/dL (12.0-16.0); Lymphocytes Absolute Auto 1600 /uL (1100-4500); Lymphocytes Percent Auto 28.3 % (25-40); Mean Corpuscular HGB Conc 34.2 % (30-36); Mean Corpuscular Hemoglobin 30.7 PG (26-34); Mean Corpuscular Volume 89.6 fL (80-100); Monocytes Absolute Auto 500 /uL (0-900); Monocytes Percent Auto 8.9 % (3-14); Neutrophils Absolute Auto 3400 /uL (1500-7000); Platelet Count 184 X10^3/uL (150-400); Red Blood Cell Count 4.44 X10^6/uL (4.0-5.2); Red Cell Distribution Width 13.6 % (11.6-14.8); White Blood Cell Count 5.6 X10^3/uL (4.5-11.0)
[2023-08-14] MEDS: SODIUM CHLORIDE 0.9% 1,000 ML 150 ML IV (11:50)
[2023-08-14 12:00] VITALS: BP 149/64; PULSE 47; RESP 22; O2SAT 94
[2023-08-14 12:01] LABS: Alanine Aminotransferase 15 IU/L (<35); Albumin 4.3 g/dL (3.5-5.0); Albumin Globulin Ratio 1.6 (1.0-2.8); Alkaline Phosphatase 66 U/L (38-126); Aspartate Aminotransferase 26 IU/L (14-36); BUN Creatinine Ratio 23.6 (6-22); Bilirubin Total 0.7 mg/dL (0.2-1.3); Blood Urea Nitrogen 17 mg/dL (7-17); Calcium 9.6 mg/dL (8.4-10.2); Carbon Dioxide 27 mmol/L (22-32); Chloride 103 mmol/L (98-107); Creatine Kinase 65 U/L (30-135); Estimated Glomerular Filt Rate > 60 mL/min (>60); Globulin 2.7 g/dL (1.7-4.1); Glucose 77 mg/dL (80-110); HEMOLYSIS 50 (0-50); Lipase 134 U/L (23-300); Sodium 138 mmol/L (137-145)
--- NOTE | 2023-08-14 12:05 | ED_ITS ---
HPI - Arrhythmia/Palpitations General Chief Complaint: Arrhythmia/Palpitations Stated Complaint: sent by [facility]/heart issue Time Seen by Provider: 08/14/23 11:30 Source: patient Mode of arrival: Ambulatory History of Present Illness HPI narrative: Patient 79-year-old female history of hypertension presenting today variety of symptoms. She states that every time she lays down at night she feels her heart beating. reports that she is had increased fatigue and shortness of breath exertion over the last couple of weeks. She is initially in the walk-in clinic today however due to bradycardia with heart rate in the 40s she was sent to the ED for evaluation. Patient really denies any pain she denies shortness of breath no nausea or vomiting. She reports no palpitations during the day only at night. Her states otherwise. She is bradycardic with a heart rate 42-51 sinus on the monitor. She takes diltiazem, lisinopril, hydrochlorothiazide Related Data Previous Rx's Medication Instructions Recorded meclizine 25 mg tablet 25 mg PO TID PRN dizziness #14 tabs 08/15/19 estradiol 0.01% (0.1 mg/gram) 1 g vaginal QWEEK #42.5 grams 04/03/22 vaginal cream (Estrace) hydrochlorothiazide 25 mg tablet 25 mg PO DAILY #90 tabs 10/13/22 lisinopril 40 mg tablet 40 mg PO DAILY #90 tabs 10/13/22 lovastatin 40 mg tablet 40 mg PO HS #90 tabs 11/13/22 omeprazole 40 mg capsule,delayed 40 mg PO DAILY #90 caps 11/23/22 release diltiazem HCl 120 mg 120 mg PO DAILY #90 caps 11/27/22 capsule,extended release 24 hr benzonatate 100 mg capsule 100 mg PO BID PRN cough #20 caps 01/21/23 fluticasone propionate 50 1 spray intranasal Q12H #16 grams 01/21/23 mcg/actuation nasal spray,suspension (Flonase Allergy Relief) clobetasol 0.05 % topical ointment 1 applic topical .COMPLEX #180 08/04/23 grams Allergies Allergy/AdvReac Type Severity Reaction Status Date / Time No Known Drug Allergies Allergy Verified 08/14/23 11:19 Review of Systems Review of Systems ROS Unobtainable: All systems reviewed & are unremarkable except as noted in HPI and below Patient History Medical History Esophageal spasm Urge incontinence Urgency of micturition Pyuria Microscopic hematuria Chronic UTI Diverticulosis GERD with esophagitis H/O adenomatous polyp of colon Mixed hyperlipidemia (11/05/15) Essential hypertension (11/05/15) Surgical History History of appendectomy History of pelvic surgery (2008) History of lumpectomy (1949) Status post tonsillectomy and adenoidectomy (1939) Status post hysterectomy (1984) Status post cholecystectomy (1994) Family History Father Family history of hypertension Hearing loss of both ears Grandmother Family history of diabetes mellitus Mother Family history of interstitial nephritis Family/Other Hypertension Social History marital status: number of children: 3 household members: spouse Smoking Status: Never smoker Smoking Status: Never smoker alcohol intake frequency: holidays/special occasions only Substance Use Type: does not use Exam Initial Vital Signs Initial Vital Signs: Vital Signs Temperature 98.0 F 08/14/23 11:15 Pulse Rate 53 L 08/14/23 11:15 Respiratory Rate 18 08/14/23 11:15 Blood Pressure 130/60 08/14/23 11:15 Pulse Oximetry 98 08/14/23 11:15 Oxygen Delivery Method Room Air 08/14/23 11:15 GENERAL: Alert well-appearing 79-year-old female and in no acute distress. HEENT: Head atraumatic,EOMI, pupils reactive, face symmetric, moist mucous membranes CARDIOVASCULAR: Bradycardic regular no murmur RESPIRATORY: Breath sounds equal bilaterally, no wheezes rales or rhonchi. ABDOMEN: Soft, nontender. Normoactive bowel sounds all 4 quadrants. No guarding or rebound. EXTREMITIES: Normal range of motion, no clubbing or edema. Neurovascularly intact NEUROLOGICAL: Alert and oriented x4.Normal gait and speech. SKIN: Warm, dry, no laceration, no petechiae, no rashes or lesions. Course Orders Ordered: ED Orders 08/14/23 11:28 EKG-12 Lead Stat 08/14/23 11:30 XR chest 1V Stat 08/14/23 11:40 BNP [NT-proBNP (BNP-Adult 18+)] Stat Complete Blood Count AUTO DIFF Stat Comprehensive Metabolic Panel Stat D Dimer Stat Lipase Stat Troponin & CK Cardiac Panel Stat Discontinued Medications Sodium Chloride (Normal Saline 0.9%) 1,000 mls @ 150 mls/hr IV CONT SHEILA Last Admin: 08/14/23 11:50 Dose: 150 mls/hr Documented By: KF Vital Signs Vital signs: Vital Signs - 8 hr 08/14/23 11:15 08/14/23 11:37 08/14/23 12:00 Temperature 98.0 F Pulse Rate 53 L 53 L Respiratory Rate 18 22 Blood Pressure 130/60 140/64 149/64 H Pulse Oximetry 98 96 Oxygen Delivery Method Room Air 08/14/23 12:00 08/14/23 12:30 08/14/23 12:30 Temperature Pulse Rate 47 L 46 L Respiratory Rate 22 22 Blood Pressure 138/64 Pulse Oximetry 94 95 Oxygen Delivery Method 08/14/23 13:00 08/14/23 13:00 Temperature Pulse Rate 44 L Respiratory Rate 20 Blood Pressure 153/66 H Pulse Oximetry 97 Oxygen Delivery Method MDM - Arrhythmia/Palpitations Lab Data 08/14/23 11:40 08/14/23 11:40 Labs: Lab Results 08/14/23 Range/Units 11:40 WBC 5.6 (4.5-11.0) X10^3/uL RBC 4.44 (4.0-5.2) X10^6/uL Hgb 13.6 (12.0-16.0) g/dL Hct 39.8 (36-46) % MCV 89.6 (80-100) fL MCH 30.7 (26-34) PG MCHC 34.2 (30-36) % RDW 13.6 (11.6-14.8) % Plt Count 184 (150-400) X10^3/uL Neut % (Auto) 61.0 (50-75) % Lymph % (Auto) 28.3 (25-40) % [place] % (Auto) 8.9 (3-14) % Eos % (Auto) 1.1 L (2-4) % Baso % (Auto) 0.7 (0-2) % Neut # (Auto) 3400 (2636-5554) /uL Lymph # (Auto) 1600 (7499-6411) /uL [place] # (Auto) 500 (0-900) /uL Eos # (Auto) 100 (0-450) /uL Baso # (Auto) 0 (0-100) /uL D-Dimer 467 (<500) ng/ml Sodium 138 (137-145) mmol/L Potassium 4.0 (3.4-5.1) mmol/L Chloride 103 (98-107) mmol/L Carbon Dioxide 27 (22-32) mmol/L BUN 17 (7-17) mg/dL Creatinine 0.72 (0.52-1.04) mg/dL Estimated GFR > 60 (>60) mL/min BUN/Creatinine Ratio 23.6 H (6-22) Glucose 77 L (80-110) mg/dL Calcium 9.6 (8.4-10.2) mg/dL Total Bilirubin 0.7 (0.2-1.3) mg/dL AST 26 (14-36) IU/L ALT 15 (<35) IU/L Alkaline Phosphatase 66 (38-126) U/L Total Creatine Kinase 65 (30-135) U/L Troponin I < 0.012 (0.01-0.034) ng/mL NT-Pro-B Natriuret Pep 441 (<450) pg/mL Total Protein 7.0 (6.3-8.2) g/dL Albumin 4.3 (3.5-5.0) g/dL Globulin 2.7 (1.7-4.1) g/dL Albumin/Globulin Ratio 1.6 (1.0-2.8) Lipase 134 (23-300) U/L Imaging Data Chest x-ray: Radiologist's Impresson: PROCEDURE: XR CHEST 1V INDICATIONS: chest pain TECHNIQUE: One view of the chest was acquired. COMPARISON: [facility], , XR CHEST 2V, 03/01/2020, 9:53. FINDINGS: Surgical changes and devices: None. Lungs and pleura: Lungs are clear. No pleural effusions or pneumothorax. Atherosclerotic vascular calcification noted in the aortic arch. Mediastinum: Mediastinal contours appear normal. Heart size is normal. Bones and chest wall: No suspicious bony lesions. Overlying soft tissues appear unremarkable. IMPRESSION: No acute cardiopulmonary findings Approved by: Randal Roldan M.D. on 08/14/2023 at 11:34 ECG Data Interpretation: Normal sinus rhythm rate 51 DE interval 180 QRS [address] changes Q-wave noted in aVL and lead 1--similar to previous EKG in 2019 MDM Narrative Medical decision making narrative: Patient well-appearing 79-year-old female who presents with generalized palpitations worse at night and increased fatigue and possible shortness of breath. She is noted to be bradycardic here in the ED while at rest heart rate as low as 42. She is on diltiazem. No blood work abnormalities no electrolyte abnormalities. BNP is negative D-dimer is negative. At this time I suspect that the diltiazem she is on is causing some bradycardia but she is not dizzy or lightheaded she is not hypotensive. She ambulated in the ED with a very steady gait heart rate 51 an oxygen stable. She had no significant dyspnea. At this time I think reasonable to stop diltiazem see if it improves her symptoms and heart rate. She reports that she is taking diltiazem for choking episodes. Discussed warning signs with patient and . Discharge Plan Departure Patient Disposition: Home Clinical Impression: Bradycardia Instructions: Bradycardia Activity Restrictions/Additional Instructions: *You have been diagnosed with bradycardia *What to do: At this time I think that your fatigue and slow heart rate are from when I your medications. I recommend stopping her medication and seeing if your symptoms improve. I would also recommend a Holter monitor which your primary doctor can provide you. Check blood pressure and heart rate 1-2 times daily *Continue to take medications as directed Stop taking diltiazem Continue taking all other medications including lisinopril hydrochlorothiazide and *Follow up with your primary care provider in 2-3 days or call [phone] Call Wednesday to schedule urgent follow-up appointment with Dr. Villeda *Return to ER if you should have increasing fatigue weakness dizziness shortness breath or any new, worsening or concerning symptoms Prescriptions: No Action fluticasone propionate [Flonase Allergy Relief] 50 mcg/actuation spray,suspension 1 spray intranasal Q12H Qty: 16 0RF Rx Instructions: administer into each nostril benzonatate 100 mg capsule 100 mg PO BID PRN (Reason: cough) Qty: 20 0RF estradiol [Estrace] 0.01 % (0.1 mg/gram) cream 1 g VAG QWEEK Qty: 42.5 3RF lovastatin 40 mg tablet 40 mg PO HS Qty: 90 3RF omeprazole 40 mg capsule,delayed release(DR/EC) 40 mg PO DAILY Qty: 90 3RF diltiazem HCl 120 mg capsule,extended release 24hr 120 mg PO DAILY Qty: 90 3RF clobetasol 0.05 % ointment 1 applic topical .COMPLEX Qty: 180 3RF Rx Instructions: 1 applic topically 4x every week; hydrochlorothiazide 25 mg tablet 25 mg PO DAILY Qty: 90 3RF lisinopril 40 mg tablet 40 mg PO DAILY Qty: 90 3RF meclizine 25 mg tablet 25 mg PO TID PRN (Reason: dizziness) Qty: 14 0RF Referrals: Rocco Villeda MD [Primary Care Provider] - Stand Alone Forms: Patient Portal/API
[2023-08-14 12:12] LABS: Troponin I < 0.012 ng/mL (0.01-0.034)
[2023-08-14 12:30] VITALS: BP 138/64; PULSE 46; RESP 22; O2SAT 95
[2023-08-14 12:43] LABS: D Dimer 467 ng/ml (<500); NT-proBNP (BNP-Adult 18+) 441 pg/mL (<450)
--- NOTE | 2023-08-14 12:55 | PC.NURSE ---
Dr. mesa at bedside w/ pt and family for re-eval
[2023-08-14 13:00] VITALS: BP 153/66; PULSE 44; RESP 20; O2SAT 97
--- NOTE | 2023-08-14 13:27 | PC.NURSE ---
ambulatory to br, steady gait, HR stable, o2 sat stable.
== END 2023-08-14 13:28 | disposition home or self-care (01) ==
PROVIDERS: Emergency Provider Emergency Medicine; PCP Internal Medicine
DX: R00.1 Bradycardia, unspecified (principal); R07.9 Chest pain, unspecified; Z79.899 Other long term (current) drug therapy
CPT/HCPCS: 36415; 71045; 80053; 82550; 83690; 83880; 84484; 85025; 85379; 93005; 93010; 96360; 99284

== ENCOUNTER → 2023-09-01 09:46 | Outpatient (CLI) | payer MEDICARE, SELFPAY | PROVIDERS: PCP Internal Medicine; Referring Provider Internal Medicine; Visit Provider Internal Medicine | DX: R00.2 Palpitations (principal); R00.1 Bradycardia, unspecified | CPT/HCPCS: 93246 ==

== ENCOUNTER → 2023-10-12 06:53 | Outpatient (CLI) | payer MEDICARE, SELFPAY ==
[2023-10-12 08:28] LABS: Alanine Aminotransferase 13 IU/L (<35); Albumin 3.9 g/dL (3.5-5.0); Albumin Globulin Ratio 1.6 (1.0-2.8); Alkaline Phosphatase 73 U/L (38-126); Aspartate Aminotransferase 22 IU/L (14-36); BUN Creatinine Ratio 25.9 (6-22); Bilirubin Total 0.5 mg/dL (0.2-1.3); Blood Urea Nitrogen 21 mg/dL (7-17); Calcium 9.5 mg/dL (8.4-10.2); Carbon Dioxide 28 mmol/L (22-32); Chloride 103 mmol/L (98-107); Cholesterol 201 mg/dL (140-199); Estimated Glomerular Filt Rate > 60 mL/min (>60); Globulin 2.4 g/dL (1.7-4.1); Glucose 97 mg/dL (80-110); HDL Cholesterol 57 mg/dL (40-60); HEMOLYSIS < 15 (0-50); LDL Cholesterol Calculated 126 mg/dL (<100); Potassium 4.1 mmol/L (3.4-5.1); Sodium 138 mmol/L (137-145); Total Protein 6.3 g/dL (6.3-8.2); Triglycerides 92 mg/dL (35-150)
[2023-10-12 13:15] LABS: TSH w/ Reflex to FT4 2.19 uIU/mL (0.47-4.68)
== END ==
PROVIDERS: PCP Internal Medicine; Referring Provider Internal Medicine; Visit Provider Internal Medicine
DX: I10 Essential (primary) hypertension (principal); E78.2 Mixed hyperlipidemia; I48.0 Paroxysmal atrial fibrillation
CPT/HCPCS: 36415; 80053; 80061; 84443

== ENCOUNTER → 2023-11-05 07:59 | Outpatient (CLI) | payer MEDICARE, SELFPAY ==
--- NOTE | 2023-11-05 07:59 | DI.ECHO.S_ITS ---
[facility]---------[facility] +---------+ : : [address] [place] : : : : [id number] : : : : Phone: [phone]---------+ Echocardiogram Report + + :Name: STEFANY KAISER Study Date: 11/05/2023 Height: 63 in : :[facility] ReadingLocation: Weight: 147 lb : : Gender: Female BSA: 1.7 m2 : :: 1935 Age: 88 yrs BP: 154/81 mmHg: :Reason For Study: ATRIAL FIBRILLATION : :Ordering Physician: JILL, : :LUCIE De La Vega Performed By: Meri Anne : :Referring: LUCIE MELCHOR : + + Interpretation Summary The ejection fraction is estimated to be 55-60%. Grade II diastolic dysfunction. Right ventricular systolic function is mildly reduced. The right ventricular systolic pressure is estimated to be at least 28 mmHg based on an estimated right atrial pressure of 3 mm Hg. The left atrium is moderately dilated. No significant valvular abnormality. Procedure: A two-dimensional transthoracic echocardiogram with color flow and Doppler was performed. The study quality was technically adequate. There is no prior echocardiogram noted for this patient. The patient was in sinus rhythm with heart rates between 44-59 bpm during the exam. Left Ventricle: The left ventricle is normal in size and wall thickness. The ejection fraction is estimated to be 55-60%. Grade II diastolic dysfunction. Right Ventricle: The right ventricle is normal in size, thickness and function. Right ventricular systolic function is mildly reduced. Atria: The left atrium is moderately dilated. Right atrial size is normal. There is no Doppler evidence for an interatrial shunt. Mitral Valve: The mitral valve is normal in structure and function. There is mild mitral regurgitation. Aortic Valve: The aortic valve is trileaflet. The aortic valve is mildly calcified. There is no hemodynamically significant valvular aortic stenosis. There is trace aortic regurgitation. Tricuspid Valve: The tricuspid valve is normal in structure and function. There is mild tricuspid regurgitation. The right ventricular systolic pressure is estimated to be at least 28 mmHg based on an estimated right atrial pressure of 3 mm Hg. Pulmonic Valve: The pulmonic valve leaflets are thin and pliable; valve motion is normal. There is trace pulmonic regurgitation. Great Vessels: The aortic root is normal size. The dimensions of the ascending aorta are normal. The IVC is of normal diameter and collapses greater than 50% with a sniff. This suggests a low right atrial pressure of 3 mm Hg. Pericardium/ Pleura There is no pericardial effusion. There is no pleural effusion. MMode/2D Measurements & Calculations LVIDd: 4.4 cm LVOT diam: 2.1 cm LVIDs: 2.7 cm Ao root diam: 2.7 cm FS: 39.8 % asc Aorta Diam: 3.7 cm EPSS: 0.36 cm Ao Arch Diam (Prox Trans): 2.4 cm IVSd: 0.95 cm LVPWd: 0.83 cm LV tierney. diameter/BSA (cm/m^2): 2.6 LV sys. diameter/BSA (cm/m^2): 1.6 LA A2 area: 25.0 cm2 RA long axis: 5.1 cm LA A4 area: 20.2 cm2 RA area: 12.6 cm2 LA length (vol): 5.7 cm RA vol: 26.6 ml LA vol: 75.4 ml RA : 15.7 ml/m2 LA vol index: 44.5 ml/m2 IVC diam: 1.4 cm RVD1 (basal): 2.9 cm RVD2 (mid): 2.9 cm TAPSE: 1.4 cm Doppler Measurements & Calculations Ao V2 max: 151.7 cm/sec LVOT Max Skip: 78.8 cm/sec Ao V2 mean: 100.6 cm/sec LV V1 max P.5 mmHg Ao max P.2 mmHg LV V1 VTI: 21.4 cm Ao mean P.6 mmHg LACY(I,D): 2.1 cm2 Ao V2 VTI: 35.8 cm LACY(V,D): 1.8 cm2 sev ratio: 0.60 LACY indexed to BSA (cm^2/m^2): 1.2 MV E max skip: 81.4 cm/sec TR max skip: 248.0 cm/sec MV A max skip: 55.1 cm/sec TR max P.6 mmHg MV E/A: 1.5 PA V2 max: 76.4 cm/sec Med Peak E' Skip: 3.6 cm/sec PA V2 mean: 50.3 cm/sec E/E' med: 22.8 PA mean P.5 mmHg Lat Peak E' Skip: 7.2 cm/sec PA pr(Accel): 43.0 mmHg E/E' lat: 11.4 E/e' average: 17.1 MV dec time: 0.20 sec [facility] 74.5 ml Reading Physician:OSEI
== END ==
LOC: ECHO 07:59
PROVIDERS: PCP Internal Medicine; Referring Provider Internal Medicine; Visit Provider Internal Medicine
DX: I08.1 Rheumatic disorders of both mitral and tricuspid valves (principal); I48.0 Paroxysmal atrial fibrillation
CPT/HCPCS: 93306

== ENCOUNTER → 2024-04-21 11:25 | Outpatient (CLI) | payer MEDICARE, SELFPAY ==
[2024-04-21 13:43] LABS: Add Manual Diff / Slide Review NO; Basophils Absolute Auto 0 /uL (0-100); Basophils Percent Auto 0.5 % (0-2); Eosinophils Absolute Auto 100 /uL (0-450); Hematocrit 40.5 % (36-46); Hemoglobin 13.8 g/dL (12.0-16.0); Lymphocytes Absolute Auto 1400 /uL (1100-4500); Lymphocytes Percent Auto 23.9 % (25-40); Mean Corpuscular Hemoglobin 30.8 PG (26-34); Mean Corpuscular Volume 90.7 fL (80-100); Monocytes Absolute Auto 500 /uL (0-900); Monocytes Percent Auto 7.8 % (3-14); Neutrophils Absolute Auto 4000 /uL (1500-7000); Neutrophils Percent Auto 65.8 % (50-75); Platelet Count 173 X10^3/uL (150-400); Red Blood Cell Count 4.46 X10^6/uL (4.0-5.2)
[2024-04-21 13:55] LABS: Hemoglobin A1C% w Est Avg Glu 5.8 % (4.0-6.0)
[2024-04-21 15:23] LABS: Alanine Aminotransferase 12 IU/L (<35); Albumin 4.4 g/dL (3.5-5.0); Albumin Globulin Ratio 2.1 (1.0-2.8); Alkaline Phosphatase 95 U/L (38-126); Aspartate Aminotransferase 23 IU/L (14-36); BUN Creatinine Ratio 19.5 (6-22); Bilirubin Total 0.7 mg/dL (0.2-1.3); Blood Urea Nitrogen 15 mg/dL (7-17); Calcium 9.4 mg/dL (8.4-10.2); Carbon Dioxide 27 mmol/L (22-32); Chloride 105 mmol/L (98-107); Cholesterol 205 mg/dL (140-199); Estimated Glomerular Filt Rate > 60 mL/min (>60); Globulin 2.1 g/dL (1.7-4.1); Glucose 86 mg/dL (80-110); HDL Cholesterol 61 mg/dL (40-60); HEMOLYSIS < 15 (0-50); LDL Cholesterol Calculated 118 mg/dL (<100); Magnesium 1.8 mg/dL (1.6-2.3); Potassium 5.1 mmol/L (3.4-5.1); Sodium 140 mmol/L (137-145); Total Protein 6.5 g/dL (6.3-8.2); Triglycerides 132 mg/dL (35-150)
[2024-04-21 15:51] LABS: TSH w/ Reflex to FT4 2.44 uIU/mL (0.47-4.68)
== END ==
PROVIDERS: PCP Internal Medicine; Referring Provider Internal Medicine Cardiovascular Disease; Visit Provider Internal Medicine Cardiovascular Disease
DX: E16.2 Hypoglycemia, unspecified (principal); I10 Essential (primary) hypertension; E78.5 Hyperlipidemia, unspecified; I48.91 Unspecified atrial fibrillation
CPT/HCPCS: 36415; 80053; 80061; 83036; 83735; 84443; 85025

== ENCOUNTER → 2024-05-24 07:42 | Outpatient (CLI) | payer MEDICARE, SELFPAY | LOC: CAR 07:42 | PROVIDERS: PCP Internal Medicine; Referring Provider Internal Medicine; Visit Provider Internal Medicine | DX: R55 Syncope and collapse (principal) | CPT/HCPCS: 93242 ==